=== PATIENT | female | born 1980 | race Two or more races ===

== ENCOUNTER 2019-02-02 17:09 | Emergency (ER) | payer SELFPAY ==
[~2019-02-02] VITALS: Ht 165.1 cm; Wt 63.5 kg
[2019-02-02 17:17] VITALS: BP 115/76
== END 2019-02-02 21:48 | disposition left against medical advice (07) ==
LOC: EDBD 17:09 → ER 17:09
DX: R10.30 Lower abdominal pain, unspecified (principal); Z53.21 Procedure and treatment not carried out due to patient leaving prior to being seen by health care provider